=== PATIENT | male | born 1955 | race Caucasian/White ===

== ENCOUNTER 2016-04-08 23:44 | Emergency (ER) | payer OTHER ==
[2016-04-09] MEDS ORDERED: ALBUTEROL/IPRATROPIUM 2.5/0.5 MG 3 ML/EACH DOSE ONE (01:34)
[2016-04-09 02:24] LABS: ABSOLUTE NEUTROPHIL COUNT 11.2 K/mm3 (1.8-7.7); BASO # 0.1 K/mm3 (0.0-0.2); BASO % 0.4 % (0.2-1.0); EOS # 0.2 (0.0-0.5); EOS % 1.5 % (0.9-2.9); HEMATOCRIT 42.9 % (32.0-52.0); HEMOGLOBIN 14.2 gm/l (14.0-18.0); IMM NEUT # 0.1 K/mm3 (0-0.2); IMM NEUT% 0.4 % (0-1); LYMPH # 2.2 (1.0-4.8); MEAN CELL VOLUME 96.2 fl (80.0-94.0); MEAN CORPUSCULAR HEMOGLOBIN 31.8 pg (27.0-31.0); MEAN CORPUSCULAR HGB CONC 33.1 g/dl (33.0-37.0); MEAN PLATELET VOLUME 11.6 fl (7.4-10.4); MONO # 1.9 (0.0-0.8); MONO % 12.3 % (4-12); NEUT % 71.4 % (43-75); PLATELET COUNT 335 K/mm3 (130-400); RED CELL DISTRIBUTION WIDTH 12.9 % (11.5-14.5)
[2016-04-09 02:39] LABS: ALB/GLOB RATIO 1.1 (>1.0); ALBUMIN 3.6 gm/dL (3.5-5.7); CALCIUM 9.6 mg/dL (8.6-10.3)
[2016-04-09 03:03] LABS: CKMB ISOENZYME 3.8 ng/ml (0.6-6.3); TROPONIN I 0.59 ng/ml (0.0-0.06)
[2016-04-09] MEDS ORDERED: FUROSEMIDE 40 MG/4 ML VIAL ONE (03:24)
[2016-04-09] MEDS ORDERED: ASPIRIN CHEWTAB 81 MG TABLET ONE (03:24)
[2016-04-09 03:37] LABS: ATYPICAL LYMPHOCYTE 5 %; BAND 0 % (0-10); BASOPHIL 0 % (0-1); EOSINOPHIL 5 % (1-3); LYMPHOCYTE 11 % (15-45); MONOCYTE 12 % (4-12); NEUTROPHILS 67 % (43-75); PLATELET ESTIMATE NORMAL (NORMAL); TOTAL CELLS COUNTED 100
[2016-04-09] MEDS ORDERED: Heparin Sodium 5000 unit/0.5ml syringe ONE (03:47)
[2016-04-09] MEDS ORDERED: HEPARIN SODIUM PREMIX 500 ML IV ONE (03:47)
--- NOTE | 2016-04-09 07:28 | RAD ---
Exam: Two-view chest COMPARISON: 01/20/2015, 01/13/2015 INDICATION: Shortness of breath for 3 days. FINDINGS: PA and lateral views of the chest were obtained. Cardiac silhouette is within normal limits, but slightly increased. There is stable ectasia of the descending thoracic aorta. Mild elevation right hemidiaphragm is similar. There is, however, new central pulmonary vascular congestion and mild bibasilar predominant interstitial disease. Tiny bilateral pleural effusions are noted and also new. Bridging osteophytes are noted within the thoracic spine; bones of the chest wall otherwise unremarkable. IMPRESSION: Congestive heart failure.
== END 2016-04-09 04:48 | disposition short-term general hospital (02) ==
LOC: ED 23:44
DX: I21.4 Non-ST elevation (NSTEMI) myocardial infarction (principal); I50.9 Heart failure, unspecified; F17.210 Nicotine dependence, cigarettes, uncomplicated